=== PATIENT | male | born 1965 | race Caucasian/White ===

== ENCOUNTER 2017-12-22 18:58 | Inpatient (IN) | payer OTHER ==
[~2017-12-22] VITALS: Ht 175.3 cm; Wt 103.8 kg
[2017-12-22 20:16] LABS: HEMATOCRIT 42.2 % (38.0-50.0); HEMOGLOBIN 14.6 G/DL (12.5-16.6); MCH 33.6 PG (29.0-34.0); MCHC 34.6 G/DL (30.0-36.0); MCV 97.2 FL (86-99); RBC DIS.WIDTH-CV 13.5 % (11.8-14.6); RBC DIS.WIDTH-SD 48.5 % (39-53); RED BLOOD COUNT 4.34 M/uL (4.00-5.50); WHITE BLOOD COUNT 24.1 K/uL (4.1-10.2)
[2017-12-22 20:25] LABS: ALBUMIN 4.3 g/dL (3.2-4.8); CHLORIDE 98 mEq/L (99-109); POTASSIUM 4.5 mEq/L (3.7-5.4); SODIUM 135 mEq/L (136-147)
[2017-12-22 20:27] LABS: GLUCOSE 291 mg/dL (70-99)
[2017-12-22 20:28] LABS: TOTAL PROTEIN 9.1 g/dL (6.4-8.3)
[2017-12-22 20:29] LABS: TOTAL BILIRUBIN 1.5 mg/dL (0.0-1.0)
[2017-12-22 20:31] LABS: ALKALINE PHOSPHATASE 89 IU/L (3-129); CREATININE 1.5 mg/dL (0.6-1.3); GFR ESTIMATE (CALCULATED) 52 mL/min/ (58.99-99999)
[2017-12-22 20:32] LABS: UREA NITROGEN (BUN) 21 mg/dL (9-23)
[2017-12-22 20:33] LABS: AST (GOT) 28 IU/L (2-34)
[2017-12-22 20:34] LABS: ALT (GPT) 50 IU/L (3-49); LIPASE 12 U/L (1.0-51.0)
[2017-12-22 21:01] LABS: ABS NEUTROPHIL COUNT 21.8; ANISOCYTOSIS NONE SEEN; BAND NEUTROPHILS 7.8 % (0-8.0); BASOPHILS 0.9 %; EOSINOPHIL ABS CT 0; HEMATOLOGY COMMENT 1 SN; MONOCYTES 1.7 % (0-9.0); PLAT.SUFFICIENCY ADEQUATE; SEG.NEUTROPHILS 82.6 % (46.0-76.0)
[2017-12-22 21:03] LABS: PLATELET COUNT UNABLE TO REPORT K/uL (156-360)
[2017-12-22] MEDS ORDERED: GLIMEPIRIDE1 MG PO (23:24)
[2017-12-22] MEDS ORDERED: GLIMEPIRIDE2 MG PO (23:25)
[2017-12-22] MEDS ORDERED: METFORMIN HCL500 M1 PO (23:27)
[2017-12-22] MEDS ORDERED: BUPROPION XL150 MG PO (23:27)
[2017-12-22] MEDS ORDERED: KENALOG,ARISTOC80 G1 TP (23:27)
[2017-12-22] MEDS ORDERED: SIMVASTATIN20 MG PO (23:28)
[2017-12-22] MEDS ORDERED: TRULICITY0.75 MG/0. SC (23:29)
[2017-12-22] MEDS ORDERED: ENBREL50 MG/1 ML SC (23:30)
[2017-12-22] MEDS ORDERED: ESCITALOPRAM OX20 MG PO (23:32)
[2017-12-22] MEDS ORDERED: CLONAZEPAM1 MG PO (23:34)
[2017-12-22] MEDS ORDERED: LISINOPRIL20 MG PO (23:36)
[2017-12-22] MEDS ORDERED: CILOSTAZOL50 MG PO (23:37)
[2017-12-22] MEDS ORDERED: KLONOPIN1 MG PO (23:38)
[2017-12-22] MEDS ORDERED: FISH OIL 1,0001 EAC7 PO (23:39)
[2017-12-22] MEDS ORDERED: VITAMIN D2000 UNI1 PO (23:40)
[2017-12-22] MEDS ORDERED: FOLIC ACID0.4 MG PO (23:41)
[2017-12-23 05:33] LABS: APPEARANCE CLEAR ((CLEAR)); BILIRUBIN NEGATIVE; BLOOD NEGATIVE; COLOR AMBER ((YELLOW)); GLUCOSE (STRIP) 50; KETONES NEGATIVE; LEUKOCYTES NEGATIVE; NITRITE NEGATIVE; PROTEIN (STRIP) 30; UCUL ADDED? NO
[2017-12-23 05:34] LABS: SPECIFIC GRAVITY > 1.060 (1.000-1.030)
[2017-12-23 07:32] LABS: BASOPHIL (%) 0.6 % (0-1); BASOPHIL COUNT 0.1 K/uL (0-0.1); EOSINOPHIL (%) 0.2 % (0-5); HEMATOCRIT 36.3 % (38.0-50.0); LYMPHOCYTE (%) 12.1 % (15-42); LYMPHOCYTE COUNT 2.1 K/uL (1.0-2.8); MCH 33.3 PG (29.0-34.0); MCHC 33.9 G/DL (30.0-36.0); MCV 98.4 FL (86-99); MONOCYTE (%) 9.2 % (3-12); MONOCYTE COUNT 1.6 K/uL (0-0.8); NEUTROPHIL (%) 76.9 % (45-76); NEUTROPHIL COUNT 13.5 K/uL (1.8-6.4); PLATELET COUNT 264 K/uL (156-360); RBC DIS.WIDTH-CV 13.4 % (11.8-14.6); RBC DIS.WIDTH-SD 48.4 % (39-53); RED BLOOD COUNT 3.69 M/uL (4.00-5.50); WHITE BLOOD COUNT 17.6 K/uL (4.1-10.2)
[2017-12-23 07:33] LABS: HEMOGLOBIN 12.3 G/DL (12.5-16.6)
[2017-12-23 07:59] LABS: CHLORIDE 103 MEQ/L (99-109); CREATININE 1.1 MG/DL (0.6-1.3); GFR ESTIMATE (CALCULATED) > 59 mL/min/ (58.99-99999); GLUCOSE 203 mg/dL (70-99); POTASSIUM 3.8 MEQ/L (3.7-5.4); SODIUM 133 MEQ/L (136-147); UREA NITROGEN (BUN) 25 mg/dL (9-23)
[2017-12-23 12:45] VITALS: BP 121/79
[2017-12-23 15:23] VITALS: BP 111/58
[2017-12-23 19:02] VITALS: BP 137/64
[2017-12-24 00:06] VITALS: BP 125/57
[2017-12-24 06:04] LABS: BASOPHIL (%) 0.5 % (0-1); BASOPHIL COUNT 0.1 K/uL (0-0.1); EOSINOPHIL (%) 0.3 % (0-5); HEMATOCRIT 35.7 % (38.0-50.0); HEMOGLOBIN 11.7 G/DL (12.5-16.6); IMMATURE GRANULOCYTE (%) 1.6 % (0.0-0.7); LYMPHOCYTE (%) 11.4 % (15-42); LYMPHOCYTE COUNT 1.8 K/uL (1.0-2.8); MCH 32.7 PG (29.0-34.0); MCHC 32.8 G/DL (30.0-36.0); MCV 99.7 FL (86-99); MONOCYTE (%) 8.7 % (3-12); MONOCYTE COUNT 1.4 K/uL (0-0.8); NEUTROPHIL (%) 77.5 % (45-76); NEUTROPHIL COUNT 12.1 K/uL (1.8-6.4); PLATELET COUNT 224 K/uL (156-360); RBC DIS.WIDTH-CV 13.5 % (11.8-14.6); RBC DIS.WIDTH-SD 49.7 % (39-53); RED BLOOD COUNT 3.58 M/uL (4.00-5.50); WHITE BLOOD COUNT 15.6 K/uL (4.1-10.2)
[2017-12-24 06:37] LABS: CHLORIDE 106 MEQ/L (99-109); CREATININE 1.1 MG/DL (0.6-1.3); GFR ESTIMATE (CALCULATED) > 59 mL/min/ (58.99-99999); GLUCOSE 191 mg/dL (70-99); POTASSIUM 3.9 MEQ/L (3.7-5.4); SODIUM 137 MEQ/L (136-147); UREA NITROGEN (BUN) 16 mg/dL (9-23)
[2017-12-24 07:43] VITALS: BP 105/55
[2017-12-24 11:23] VITALS: BP 125/65
[2017-12-24 15:39] VITALS: BP 134/71
[2017-12-24 23:48] VITALS: BP 128/67
[2017-12-25 06:19] LABS: BASOPHIL (%) 0.5 % (0-1); BASOPHIL COUNT 0.1 K/uL (0-0.1); EOSINOPHIL (%) 1.1 % (0-5); EOSINOPHIL COUNT 0.1 K/uL (0-0.3); HEMATOCRIT 33.5 % (38.0-50.0); HEMOGLOBIN 11.2 G/DL (12.5-16.6); IMMATURE GRANULOCYTE (%) 1.2 % (0.0-0.7); LYMPHOCYTE (%) 16.6 % (15-42); LYMPHOCYTE COUNT 2.2 K/uL (1.0-2.8); MCH 32.9 PG (29.0-34.0); MCHC 33.4 G/DL (30.0-36.0); MCV 98.5 FL (86-99); MONOCYTE (%) 11.1 % (3-12); MONOCYTE COUNT 1.4 K/uL (0-0.8); NEUTROPHIL (%) 69.5 % (45-76); PLATELET COUNT 236 K/uL (156-360); RBC DIS.WIDTH-CV 13.8 % (11.8-14.6); RBC DIS.WIDTH-SD 49.3 % (39-53)
[2017-12-25 07:02] LABS: CHLORIDE 105 MEQ/L (99-109); CREATININE 0.8 MG/DL (0.6-1.3); GFR ESTIMATE (CALCULATED) > 59 mL/min/ (58.99-99999); GLUCOSE 135 mg/dL (70-99); POTASSIUM 3.7 MEQ/L (3.7-5.4); SODIUM 137 MEQ/L (136-147); UREA NITROGEN (BUN) 11 mg/dL (9-23)
[2017-12-25 07:43] VITALS: BP 125/72
[2017-12-25 16:06] VITALS: BP 119/67
[2017-12-25 23:32] VITALS: BP 129/78
[2017-12-26 05:20] LABS: BASOPHIL (%) 0.6 % (0-1); BASOPHIL COUNT 0.1 K/uL (0-0.1); EOSINOPHIL (%) 2.2 % (0-5); EOSINOPHIL COUNT 0.3 K/uL (0-0.3); HEMATOCRIT 31.9 % (38.0-50.0); HEMOGLOBIN 10.5 G/DL (12.5-16.6); IMMATURE GRANULOCYTE (%) 1.4 % (0.0-0.7); LYMPHOCYTE (%) 15.4 % (15-42); LYMPHOCYTE COUNT 1.8 K/uL (1.0-2.8); MCH 32.5 PG (29.0-34.0); MCHC 32.9 G/DL (30.0-36.0); MCV 98.8 FL (86-99); MONOCYTE (%) 10.7 % (3-12); MONOCYTE COUNT 1.2 K/uL (0-0.8); NEUTROPHIL (%) 69.7 % (45-76); NEUTROPHIL COUNT 8.1 K/uL (1.8-6.4); PLATELET COUNT 227 K/uL (156-360); RBC DIS.WIDTH-CV 13.9 % (11.8-14.6); RBC DIS.WIDTH-SD 50.1 % (39-53); RED BLOOD COUNT 3.23 M/uL (4.00-5.50); WHITE BLOOD COUNT 11.6 K/uL (4.1-10.2)
[2017-12-26 07:45] VITALS: BP 145/77
[2017-12-26 10:58] LABS: C DIFF TOXIN NEGATIVE (NEGATIVE)
[2017-12-26 15:30] VITALS: BP 144/83
[2017-12-27 06:01] LABS: BASOPHIL (%) 0.5 % (0-1); BASOPHIL COUNT 0.1 K/uL (0-0.1); EOSINOPHIL (%) 2.6 % (0-5); EOSINOPHIL COUNT 0.3 K/uL (0-0.3); HEMATOCRIT 32.4 % (38.0-50.0); HEMOGLOBIN 10.7 G/DL (12.5-16.6); LYMPHOCYTE (%) 18.4 % (15-42); LYMPHOCYTE COUNT 1.8 K/uL (1.0-2.8); MCH 32.2 PG (29.0-34.0); MCV 97.6 FL (86-99); MONOCYTE (%) 11.4 % (3-12); MONOCYTE COUNT 1.1 K/uL (0-0.8); NEUTROPHIL (%) 64.1 % (45-76); NEUTROPHIL COUNT 6.2 K/uL (1.8-6.4); PLATELET COUNT 231 K/uL (156-360); RBC DIS.WIDTH-CV 13.8 % (11.8-14.6); RBC DIS.WIDTH-SD 49.8 % (39-53); RED BLOOD COUNT 3.32 M/uL (4.00-5.50); WHITE BLOOD COUNT 9.6 K/uL (4.1-10.2)
[2017-12-27 07:19] VITALS: BP 156/80
[2017-12-27 15:59] VITALS: BP 157/90
[2017-12-27 22:56] VITALS: BP 136/73
[2017-12-28 07:05] VITALS: BP 154/88
[2017-12-28 15:42] VITALS: BP 139/79
[2017-12-28 23:54] VITALS: BP 120/70
[2017-12-29 06:15] LABS: HEMATOCRIT 31.7 % (38.0-50.0); HEMOGLOBIN 10.7 G/DL (12.5-16.6); MCH 32.9 PG (29.0-34.0); MCHC 33.8 G/DL (30.0-36.0); MCV 97.5 FL (86-99); PLATELET COUNT 294 K/uL (156-360); RBC DIS.WIDTH-CV 14.2 % (11.8-14.6); RBC DIS.WIDTH-SD 50.8 % (39-53); RED BLOOD COUNT 3.25 M/uL (4.00-5.50); WHITE BLOOD COUNT 11.8 K/uL (4.1-10.2)
[2017-12-29 06:39] LABS: CHLORIDE 106 MEQ/L (99-109); CREATININE 0.8 MG/DL (0.6-1.3); GFR ESTIMATE (CALCULATED) > 59 mL/min/ (58.99-99999); GLUCOSE 90 mg/dL (70-99); POTASSIUM 3.8 MEQ/L (3.7-5.4); SODIUM 143 MEQ/L (136-147); UREA NITROGEN (BUN) 9 mg/dL (9-23)
[2017-12-29 06:56] LABS: BASOPHIL (%) 0.6 % (0-1); BASOPHIL COUNT 0.1 K/uL (0-0.1); EOSINOPHIL (%) 1.5 % (0-5); EOSINOPHIL COUNT 0.2 K/uL (0-0.3); IMMATURE GRANULOCYTE (%) 4.7 % (0.0-0.7); LYMPHOCYTE (%) 15.7 % (15-42); LYMPHOCYTE COUNT 1.9 K/uL (1.0-2.8); MONOCYTE (%) 9.3 % (3-12); MONOCYTE COUNT 1.1 K/uL (0-0.8); NEUTROPHIL (%) 68.2 % (45-76); NEUTROPHIL COUNT 8.1 K/uL (1.8-6.4)
[2017-12-29 07:09] VITALS: BP 115/70
[2017-12-29 15:56] VITALS: BP 114/70
[2017-12-29 23:45] VITALS: BP 129/78
[2017-12-30 06:40] LABS: HEMATOCRIT 31.6 % (38.0-50.0); HEMOGLOBIN 10.4 G/DL (12.5-16.6); MCH 32.6 PG (29.0-34.0); MCHC 32.9 G/DL (30.0-36.0); MCV 99.1 FL (86-99); PLATELET COUNT 312 K/uL (156-360); RBC DIS.WIDTH-CV 14.4 % (11.8-14.6); RBC DIS.WIDTH-SD 52.2 % (39-53); RED BLOOD COUNT 3.19 M/uL (4.00-5.50); WHITE BLOOD COUNT 8.8 K/uL (4.1-10.2)
[2017-12-30 07:01] LABS: CHLORIDE 103 MEQ/L (99-109); CREATININE 0.8 MG/DL (0.6-1.3); GFR ESTIMATE (CALCULATED) > 59 mL/min/ (58.99-99999); GLUCOSE 82 mg/dL (70-99); POTASSIUM 3.4 MEQ/L (3.7-5.4); SODIUM 140 MEQ/L (136-147); UREA NITROGEN (BUN) 6 mg/dL (9-23)
[2017-12-30 07:18] LABS: ABS NEUTROPHIL COUNT 6.9; ANISOCYTOSIS 1+; BAND NEUTROPHILS 0.9 % (0-8.0); BASOPHILS 0.9 %; EOSINOPHIL ABS CT 0.3; EOSINOPHILS 3.5 % (0-5.0); LYMPHOCYTES 7.9 % (15.0-45.0); MACROCYTES 1+; MONOCYTES 9.6 % (0-9.0); OVALOCYTES 1+; PLAT.SUFFICIENCY ADEQUATE; POLYCHROMASIA 1+; SEG.NEUTROPHILS 77.2 % (46.0-76.0); TEAR DROP CELLS 1+
[2017-12-30 07:20] VITALS: BP 135/78
[2017-12-30 09:10] LABS: C-REACTIVE PROTEIN 140.1 MG/L (0-10)
[2017-12-30 16:10] VITALS: BP 132/76
[2017-12-31 00:22] VITALS: BP 131/79
[2017-12-31 07:17] VITALS: BP 123/64
[2017-12-31 09:49] LABS: C-REACTIVE PROTEIN 96.7 MG/L (0-10); CHLORIDE 104 MEQ/L (99-109); CREATININE 0.7 MG/DL (0.6-1.3); GFR ESTIMATE (CALCULATED) > 59 mL/min/ (58.99-99999); GLUCOSE 107 mg/dL (70-99); POTASSIUM 3.6 MEQ/L (3.7-5.4); SODIUM 141 MEQ/L (136-147); UREA NITROGEN (BUN) 8 mg/dL (9-23)
[2017-12-31] MEDS ORDERED: NICOTINE PATCH1 EAC2 TD (11:48)
[2017-12-31] MEDS ORDERED: AMOX TR-K CLV1 EAC4 PO (11:48)
== END 2017-12-31 13:05 | disposition home or self-care (01) | DRG 872 ==
LOC: EME 18:58 → 5EAST 12-23 00:44 → EDOF 12-23 00:44 → ENRESERV 12-23 00:47 → 5EAST 12-23 12:38
PROVIDERS: Hospitalist; Physician Assistant; Student in an Organized Health Care Education/Training Program
DX: A41.9 Sepsis, unspecified organism (principal); K57.20 Diverticulitis of large intestine with perforation and abscess without bleeding; E11.65 Type 2 diabetes mellitus with hyperglycemia; D89.9 Disorder involving the immune mechanism, unspecified; E87.6 Hypokalemia; I10 Essential (primary) hypertension; F41.9 Anxiety disorder, unspecified; L40.9 Psoriasis, unspecified; F17.210 Nicotine dependence, cigarettes, uncomplicated; F12.90 Cannabis use, unspecified, uncomplicated; E66.9 Obesity, unspecified; Z68.36 Body mass index [BMI] 36.0-36.9, adult; Z79.4 Long term (current) use of insulin
CPT/HCPCS: 74176; 74177; 80048; 80048 91; 80053; 81003; 82948; 83605; 83690; 85025; 85027; 86140; 87040; 87493; 99281; 99285; C1753; J0744; J1170; J1644; J1815; J1885; J2405; J2543; J3010; J7030; J7050; S0028; S0030